=== PATIENT | male | born 1940 | race Caucasian/White ===

== ENCOUNTER 2022-10-11 05:40 | Day surgery (SDC) | payer MEDICARE, OTHER ==
[~2022-10-11] VITALS: Ht 185.4 cm; Wt 84.1 kg
--- NOTE | ~2022-10-11 | OR ---
[facility] [address], [place] [address] Draft DATE OF OPERATION: 10/11/2022 SURGEON: Rosalio Lino DPM PREOPERATIVE DIAGNOSES: 1. Hammertoes, left 2nd and 3rd toes. 2. 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 POSTOPERATIVE DIAGNOSES: 1. Hammertoes, left 2nd and 3rd toes. 2. 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 ASSEMBLER FINGER BUFFS: Miguelangel Joe DPM. ANESTHESIA: IV general with local block left foot. COMMISSION CLERK: Rosalio Ferraro. SPECIMEN TO PATHOLOGY: None. PROCEDURE: Hammertoe correction with PIPJ fusion left 2nd and 3rd toes. DESCRIPTION OF PROCEDURE: The patient was brought to the operating room and placed on the table in the supine position. Anesthesia Department administered IV sedation after which a local block was given to the left foot using a total of 6 mL of 1:1 mixture 2% lidocaine plain and 0.5% ropivacaine plain. The left leg and foot was then prepped and draped in the usual sterile manner and an Esmarch was used for hemostasis. Attention was initially directed to the left foot. The left 2nd and 3rd toes were noted to have significantly tight extensor tendon with dorsal contracture at the MPJ, and an extensor tenotomy was deemed necessary at this time, this was performed percutaneously over the dorsal forefoot and with the tendon release, the majority of the contracture PATIENT NAME: ASHLEE DELUCA OPERATIVE REPORT DATE OF : 38 REPORT #: [id number] PHYSICIAN: ROSALIO LINO DPM PCP: NIMA MERIDA MD REPORT IS CONFIDENTIAL AND NOT TO BE RELEASED WITHOUT AUTHORIZATION [facility] [address], [place] [address] Draft appeared to resolve immediately to both the 2nd and 3rd toes. Attention was then directed to the dorsal aspect of the proximal interphalangeal joint, left 2nd digit. A corn was noted at this site and a transverse ellipse was made over the PIPJ excising the corn lesion. The incision was full thickness through the dermis and the ellipse of skin removed exposing deep fascia tendon and joint capsule. A transverse incision was made at this time through the tendon and joint capsules to open the proximal interphalangeal joint. Soft tissues were reflected proximally to expose the head of the proximal phalanx which was then resected using power instrumentation. Power instrumentation also used to resect a small amount of cartilage and bone at the base of the intermediate phalanx to prep the joint for fusion. The instrumentation then used to create a drill hole into the proximal and intermediate phalanges to accept the implant, the implant was then placed and the toe reapproximated achieving good bony apposition and good alignment and position to the toe, the 10 degree implant was used. The surgical site then irrigated with copious amounts of normal saline, the tendon and joint capsule then reapproximated using 4-0 Vicryl and skin closed using 5-0 nylon monofilament suture. Hammertoe correction, left 3rd digit. This was performed in an identical manner to the left 2nd digit without additions or deletions. Dressings then applied consisting of Adaptic, Betadine-soaked gauze, dry gauze, Flexicon, and Coban for mild compression, as well as to splint the position to the toes. A postoperative injection was given prior to placement of the dressings, using a total of 5 mL of 9:1 mixture of 0.5% ropivacaine and dexamethasone phosphate 4 mg/mL. INTRAOPERATIVE COMPLICATIONS: None. ESTIMATED BLOOD LOSS: Less than 5 mL. The patient tolerated the procedure and the anesthesia well and left the operating room with vital signs stable and vascular status intact to the left foot as evidenced by hyperemia with removal of the Esmarch. Rosalio Lino DPM PATIENT NAME: ASHLEE DELUCA OPERATIVE REPORT DATE OF : 38 REPORT #: [id number] PHYSICIAN: ROSALIO LINO DPM PCP: NIMA MERIDA MD REPORT IS CONFIDENTIAL AND NOT TO BE RELEASED WITHOUT AUTHORIZATION [facility] [address] [place] [id number] Draft CLAUDIA/GIANLUCA /[id number] Copies: ~ PATIENT NAME: ASHLEE DELUCA OPERATIVE REPORT DATE OF : 38 REPORT #: [id number] PHYSICIAN: ROSALIO LINO DPM PCP: NIMA MERIDA MD REPORT IS CONFIDENTIAL AND NOT TO BE RELEASED WITHOUT AUTHORIZATION
--- NOTE | 2022-10-11 09:30 | NUR ---
10/11/22 0930 Michelle Jacinto 0825 PT ARRIVED IN PACU AWAKE WITH NO C/O'S. 0840 3 VIEW XRAY OF L FOOT DONE. AT [facility]. 0845 SITTING UP IN BED SIPPING ON WATER. 0900 PT'S OWN POST OP SHOE PLACED ON L FOOT. DC INSTRUCTIONS GIVEN. ALL QUESTIONS ANSWERED. LEFT VIA W/C.
== END 2022-10-11 09:00 | disposition home or self-care (01) ==
LOC: DS 05:40 → OPS 05:40 → DS 07:30 → OPS 09:00
PROVIDERS: ATTEND Podiatrist Foot Surgery
PROC: 0SGP0JZ Fusion of Right Toe Phalangeal Joint with Synthetic Substitute, Open Approach (ICD-10-PCS; 2022-10-11)
PROC: 0SGQ0JZ Fusion of Left Toe Phalangeal Joint with Synthetic Substitute, Open Approach (ICD-10-PCS; principal; 2022-10-11 07:30)
DX: M20.42 Other hammer toe(s) (acquired), left foot (principal); M62.472 Contracture of muscle, left ankle and foot
CPT/HCPCS: 73630; J0690; J1100; J2001; J2405; J2704; J2795; J7121